=== PATIENT | male | born 1940 | race Caucasian/White ===

== ENCOUNTER 2016-10-26 09:09 | Emergency (ER) | payer MEDICARE, OTHER ==
[~2016-10-26] VITALS: Ht 177.8 cm; Wt 83.9 kg
--- NOTE | 2016-10-26 09:09 | NUR ---
BROUGHT IN BY HAMIDA CHU, PLACED IN BED #1 AND TRIAGED. REPORT GIVEN TO ABDIEL
[2016-10-26 09:10] VITALS: BP_SYST 94
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
--- NOTE | 2016-10-26 09:11 | NUR ---
Bilateral radial pulses present and strong, able to wiggle all fingers freely, no numbness or tingling per patient, capillary refill less than three secs, sensation present.
[2016-10-26] MEDS ORDERED: DIPH-TET-PERTUS Vaccine 0.5 ML VIAL (ADACEL) I.M. ONE (09:30)
--- NOTE | 2016-10-26 09:30 | NUR ---
Slight ST elevation noted on monitor, EKG done, given to Dr. Son-aware.
[2016-10-26] MEDS ORDERED: KETOROLAC TROMETHAMINE 30 MG VIAL IM ONE (10:00)
[2016-10-26] MEDS ORDERED: MORPHINE SULFATE 10 MG/ML VIAL IM ONE (10:45)
[2016-10-26] MEDS ORDERED: ONDANSETRON 4 MG ODT TAB PO ONE (10:45)
--- NOTE | 2016-10-26 11:01 | NUR ---
Patient to CT
[2016-10-26] MEDS ORDERED: KETAMINE HCL 500 MG/10 ML VIAL IVP ONE (11:45)
[2016-10-26 12:13] LABS: BASOPHILS # (AUTO) 0.1 K/uL (0.0-0.2); BASOPHILS % (AUTO) 1.3 % (0.0-2.0); EOSINOPHILS % (AUTO) 0.1 % (0.0-4.0); HEMATOCRIT 44.5 % (36-54); HEMOGLOBIN 14.8 g/dL (14.0-18.0); LYMPHOCYTES # (AUTO) 0.7 K/uL (1.0-5.5); LYMPHOCYTES % (AUTO) 6.2 % (20.5-51.5); MEAN CORPUSCULAR HEMOGLOBIN 30 pg (27-31); MEAN CORPUSCULAR HGB CONC 33 % (32-36); MEAN CORPUSCULAR VOLUME 91 fL (79.0-98.0); MONOCYTES # (AUTO) 0.5 K/uL (0.0-1.0); MONOCYTES % (AUTO) 4.1 % (1.7-9.3); NEUTROPHILS # (AUTO) 10.1 K/uL (1.8-7.7); NEUTROPHILS % (AUTO) 88.3 % (40.0-70.0); PLATELET COUNT (AUTO) 180 K/uL (130-430); RED BLOOD CELL COUNT(AUTO) 4.87 MIL/uL (4.2-6.2); RED CELL DISTRIBUTION WIDTH 12.2 % (9.0-15.0); WHITE BLOOD COUNT (AUTO) 11.4 K/uL (4.8-10.8)
--- NOTE | 2016-10-26 12:25 | NUR ---
Team Time out performed with Dr. Son, Cyril EMT, Bettye RT, and myself at bedside. Patients name and verified w/ right side chest tube placement.
[2016-10-26] MEDS ORDERED: LIDOCAINE 1%, 20 ML MDV 20 ML ONE (12:26)
[2016-10-26 12:32] LABS: ANION GAP 6 (5-15); CALCIUM 9.2 mg/dL (8.4-11.0); CHLORIDE 105 mmol/L (98-107); CREATININE 1.21 mg/dL (0.55-1.30); GLUCOSE 133 mg/dL (70-99); POTASSIUM 4.1 mmol/L (3.5-5.1); SODIUM SERUM 139 mmol/L (136-145); UREA NITROGEN, BLOOD 23 mg/dL (8-21)
[2016-10-26 12:37] LABS: ALANINE AMINOTRANSFERASE 56 U/L (12-78); ALBUMIN 3.8 g/dL (3.4-4.8); ASPARTATE AMINOTRANSFERASE 58 U/L (10-37); TOTAL BILIRUBIN 0.5 mg/dL (0.0-1.0); TOTAL PROTEIN, SERUM 6.9 g/dL (6.4-8.3)
--- NOTE | 2016-10-26 12:55 | NUR ---
1-1 monitoring terminated after moderate sedation. Patient is fully awake alert and oriented. Chest tube on right side is hooked to water seal which is bubbling.
--- NOTE | 2016-10-26 13:30 | NUR ---
Chest tube functioning properly to suction (20 mmHg) per MD order. No leaks noted. Addendum: 10/26/16 at 1641 by KYLAH Chest tube functioning properly to suction (20 cm h20) per MD order. No leaks noted.
--- NOTE | 2016-10-26 14:00 | NUR ---
Patient in stable condition, alert and oriented x4.
--- NOTE | 2016-10-26 15:00 | NUR ---
Patient in stable condition, alert and oriented x4, no distress noted.
--- NOTE | 2016-10-26 15:13 | NUR ---
Spoke to Fransisca from [facility], stated patient will go to room 703. Number received for report.
--- NOTE | 2016-10-26 15:16 | NUR ---
Report givent to nurse at [facility]. All questions addressed. Addendum: 10/26/16 at 1519 by KYLAH Nurse stated to not transfer patient yet due to room not yet available (current patient still in room waiting to be transferred). all source intelligence technician to call ambulance to hold.
[2016-10-26] MEDS ORDERED: ONDANSETRON HCL 4 MG/2 ML VIAL IVP ONE (15:30)
[2016-10-26] MEDS ORDERED: MORPHINE 4 MG/ML INJ. SYRINGE IVP ONE (15:30)
--- NOTE | 2016-10-26 15:30 | NUR ---
Chest tube functioning properly to suction (20 mmHg) per MD order. No leaks noted. Addendum: 10/26/16 at 1643 by KYLAH Chest tube functioning properly to suction (20 cm h20) per MD order. No leaks noted.
--- NOTE | 2016-10-26 15:40 | NUR ---
Patient in stable condition, alert and oriented x4, speaking with family
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
--- NOTE | 2016-10-26 15:45 | NUR ---
Tre from [facility] states that [facility] needs to take report and they have been contacted.
--- NOTE | 2016-10-26 15:48 | NUR ---
James Spann was called again and I was told that [facility] GAM[facility] was on break and was unable to take report.
--- NOTE | 2016-10-26 16:15 | NUR ---
Patient to be transferred to [facility]. Is being transferred due to higher level of care. Receiving facility has accepting physician and available space. ER physician has signed transfer form. Patient or responsible democrat has agreed to transfer and signed form. Patient belongings inventoried and will be sent with patient. Copy of nursing notes, lab reports, EKG, Physicians Orders and X-rays to be sent with patient. Report called to Tasha GAMING at receiving facility. Receiving physician is jihan. [facility] has been called for transfer. Ambulance is waiting at bedside.
[2016-10-26 16:34] VITALS: BP_SYST 124
--- NOTE | 2016-10-26 16:34 | NUR ---
Patient left floor in stable condition with 2 paramedics via [facility]. Chest tube clamped for transport-insertion site and dressing intact, no signs of dislodgement, no bleeding noted from site. Patient alert and oriented x4.
== END 2016-10-26 16:34 ==
LOC: SED 09:09
DX: S22.41XA Multiple fractures of ribs, right side, initial encounter for closed fracture (principal); J93.9 Pneumothorax, unspecified; V19.9XXA Pedal cyclist (driver) (passenger) injured in unspecified traffic accident, initial encounter; Y93.89 Activity, other specified; Y92.89 Other specified places as the place of occurrence of the external cause; Y99.8 Other external cause status
CPT/HCPCS: 36415; 71010; 71250; 73030; 80053; 85025; 85610; 85730; 90471; 90715; 93005; 96372; 96374; 96375; 99152; 99285; J1885; J2001; J2270 ×2; J2405; J7040; Q0162